=== PATIENT | female | born 1995 | race Caucasian/White ===

== ENCOUNTER → 2017-04-28 | Outpatient (CLI) | payer BC ==
[2017-04-28 16:02] LABS: HEMATOCRIT 42.9 % (35.0-45.0); HEMOGLOBIN 14.3 g/dl (12.0-15.0); MEAN CELL VOLUME 88 fl (80.0-95.0); MEAN CORPUSCULAR HEMOGLOBIN 29 pg (26.0-32.0); MEAN CORPUSCULAR HGB CONC 33 g/dl (33.0-37.0); MEAN PLATELET VOLUME 8.9 fl (7.4-10.4); PLATELET COUNT 441 K/mm3 (130-400); REDCELL DISTRIBUTION WIDTH-CV 12.9 % (11.5-14.5)
[2017-04-28 16:14] LABS: ALBUMIN 5.2 gm/dL (3.5-5.0); BILIRUBIN,TOTAL 0.3 mg/dL (0.0-1.0); CALCIUM 9.7 mg/dL (8.4-10.2); CREATININE, serum 0.78 mg/dL (0.52-1.25); TOTAL PROTEIN 8.1 gm/dL (6.4-8.2)
== END ==
LOC: COL.LAB 15:41
PROVIDERS: Internal Medicine
DX: K51.811 Other ulcerative colitis with rectal bleeding (principal)

== ENCOUNTER 2017-09-22 14:09 | Outpatient (CLI) | payer BC ==
[~2017-09-22] VITALS: Ht 165.1 cm; Wt 66.0 kg
[2017-09-22 15:00] LABS: BASO % 0.4 % (0.0-2.0); EOS # 0.3 (0.0-0.7); EOS % 3.7 % (0-4.0); GRAN # 5.2 (1.4-6.5); GRAN % 66.4 % (42.2-75.2); LYMPH # 1.9 (1.2-3.4); LYMPH % 24.4 % (20.0-51.0); MEAN CELL VOLUME 82 fl (80.0-95.0); MEAN CORPUSCULAR HGB CONC 32 g/dl (33.0-37.0); MEAN PLATELET VOLUME 8.6 fl (7.4-10.4); MONO # 0.3 (0.1-0.6); MONO % 4.2 % (1.7-9.3); PLATELET COUNT 653 K/mm3 (130-400); RED BLOOD COUNT 2.45 M/mm3 (4.10-5.30)
[2017-09-22 15:15] LABS: ALBUMIN 3.3 gm/dL (3.5-5.0); BILIRUBIN,TOTAL 0.2 mg/dL (0.0-1.0); CALCIUM 8.9 mg/dL (8.4-10.2); CREATININE, serum 0.79 mg/dL (0.52-1.25); POTASSIUM 3.8 mmol/L (3.4-5.0); TOTAL PROTEIN 6.5 gm/dL (6.4-8.2)
[2017-09-22 15:17] LABS: HEMATOCRIT 20.1 % (35.0-45.0); HEMOGLOBIN 6.4 g/dl (12.0-15.0); MEAN CORPUSCULAR HEMOGLOBIN 26 pg (26.0-32.0)
[2017-09-22 15:33] VITALS: BP 102/56; PULSE 103; TEMP 99.2
[2017-09-22] MEDS ORDERED: ALDACTONE 25MG25 M1 PO (16:21)
[2017-09-22] MEDS ORDERED: CALCIUM 600MG+D1 TAB PO (16:22)
[2017-09-22] MEDS ORDERED: COLACE 100100 MG/CAP PO (16:22)
[2017-09-22] MEDS ORDERED: TYLENOL 325MG325 MG PO (16:23)
[2017-09-22] MEDS ORDERED: ZOFRAN 4MG T4 MG/TAB PO (16:23)
[2017-09-22] MEDS ORDERED: REMICADE V100 MG/VIA IV (16:24)
[2017-09-22] MEDS ORDERED: MULTIPLE VITAMI1 CAP PO (16:25)
[2017-09-22] MEDS ORDERED: SKYLA13.5 MG IY (16:25)
== END 2017-09-22 16:37 | disposition other institution (70) ==
LOC: EUO 14:09
PROVIDERS: Physician Assistant Medical
DX: I95.9 Hypotension, unspecified (principal); K51.90 Ulcerative colitis, unspecified, without complications; R00.0 Tachycardia, unspecified; R06.02 Shortness of breath; R50.9 Fever, unspecified
CPT/HCPCS: J7030

== ENCOUNTER 2017-09-22 16:28 | Emergency (ER) | payer BC ==
[~2017-09-22] VITALS: Ht 165.1 cm; Wt 66.0 kg
[2017-09-22] VITALS (7 sets, daily range): BP systolic 92–117; BP diastolic 53–77; PULSE 100–106; TEMP 98.2–99
[~2017-09-22 16:28] MED LIST: ALDACTONE 25MG25 M1 PO; CALCIUM 600MG+D1 TAB PO; COLACE 100100 MG/CAP PO; MULTIPLE VITAMI1 CAP PO; REMICADE V100 MG/VIA IV; SKYLA13.5 MG IY; TYLENOL 325MG325 MG PO; ZOFRAN 4MG T4 MG/TAB PO
[2017-09-22 17:20] LABS: COLLECTION METHOD CLEAN CATCH
[2017-09-22 17:22] LABS: BASO % 0.4 % (0.0-2.0); EOS # 0.3 (0.0-0.7); EOS % 4.1 % (0-4.0); GRAN # 4.3 (1.4-6.5); GRAN % 60.2 % (42.2-75.2); LYMPH # 2.1 (1.2-3.4); LYMPH % 29.3 % (20.0-51.0); MEAN CELL VOLUME 81 fl (80.0-95.0); MEAN CORPUSCULAR HGB CONC 32 g/dl (33.0-37.0); MEAN PLATELET VOLUME 8.5 fl (7.4-10.4); MONO # 0.4 (0.1-0.6); MONO % 4.9 % (1.7-9.3); PLATELET COUNT 673 K/mm3 (130-400); RED BLOOD COUNT 2.47 M/mm3 (4.10-5.30)
[2017-09-22 17:27] LABS: HEMOGLOBIN 6.3 g/dl (12.0-15.0); MEAN CORPUSCULAR HEMOGLOBIN 26 pg (26.0-32.0)
[2017-09-22 17:27] LABS: MUCOUS Present /lpf; PH 6 (5-8); SQUAMOUS EPITHELIAL 0-2 /hpf; URINE APPEARANCE Clear; URINE BACTERIA None Seen /hpf; URINE BILIRUBIN Negative (NEGATIVE); URINE BLOOD 1+ (NEGATIVE); URINE COLOR Yellow; URINE GLUCOSE Negative (NEGATIVE); URINE KETONE Negative (NEGATIVE); URINE LEUKOCYTE ESTERASE Negative (NEGATIVE); URINE NITRATE Negative (NEGATIVE); URINE PROTEIN(semi-quant) Negative (NEGATIVE); URINE RBC 0-2 /hpf; URINE UROBILINOGEN Negative (NEGATIVE)
[2017-09-22 17:35] LABS: ALBUMIN 3.2 gm/dL (3.5-5.0); BILIRUBIN,TOTAL 0.1 mg/dL (0.0-1.0); CALCIUM 8.5 mg/dL (8.4-10.2); CREATININE, serum 0.71 mg/dL (0.52-1.25); POTASSIUM 3.8 mmol/L (3.4-5.0); TOTAL PROTEIN 6.5 gm/dL (6.4-8.2)
[2017-09-22 18:56] LABS: PROTHROMBIN TIME 11.6 SECONDS (9.7-12.8)
== END 2017-09-22 22:00 | disposition short-term general hospital (02) ==
LOC: COL.ER 16:28
PROVIDERS: Emergency Medicine
DX: K51.90 Ulcerative colitis, unspecified, without complications (principal); D64.9 Anemia, unspecified; Z90.89 Acquired absence of other organs
CPT/HCPCS: J7030; P9016

== ENCOUNTER → 2017-10-03 | Outpatient (CLI) | payer BC ==
[2017-10-03 08:51] LABS: BASO # 0.1 (0.0-0.2); BASO % 0.7 % (0.0-2.0); EOS # 0.7 (0.0-0.7); EOS % 7.4 % (0-4.0); GRAN # 5.9 (1.4-6.5); GRAN % 67.1 % (42.2-75.2); LYMPH # 1.7 (1.2-3.4); LYMPH % 18.7 % (20.0-51.0); MEAN CELL VOLUME 88 fl (80.0-95.0); MEAN CORPUSCULAR HGB CONC 31 g/dl (33.0-37.0); MEAN PLATELET VOLUME 8.7 fl (7.4-10.4); MONO # 0.5 (0.1-0.6); MONO % 5.6 % (1.7-9.3); PLATELET COUNT 605 K/mm3 (130-400); REDCELL DISTRIBUTION WIDTH-CV 18.4 % (11.5-14.5)
[2017-10-03 08:57] LABS: HEMATOCRIT 31.6 % (35.0-45.0); HEMOGLOBIN 9.9 g/dl (12.0-15.0); MEAN CORPUSCULAR HEMOGLOBIN 28 pg (26.0-32.0)
[2017-10-03 09:03] LABS: ALBUMIN 3.6 gm/dL (3.5-5.0); BILIRUBIN,TOTAL 0.3 mg/dL (0.0-1.0); CALCIUM 9.1 mg/dL (8.4-10.2); CREATININE, serum 0.83 mg/dL (0.52-1.25); POTASSIUM 3.6 mmol/L (3.4-5.0); TOTAL PROTEIN 7.6 gm/dL (6.4-8.2)
== END ==
LOC: COL.LAB 08:13
PROVIDERS: Internal Medicine
DX: D64.9 Anemia, unspecified (principal); K51.311 Ulcerative (chronic) rectosigmoiditis with rectal bleeding

== ENCOUNTER → 2017-10-14 | Outpatient (CLI) | payer BC | LOC: COL.LAB 11:19 | DX: R19.7 Diarrhea, unspecified (principal) ==

== ENCOUNTER → 2017-10-24 | Outpatient (CLI) | payer BC ==
[~2017-10-24] MED LIST changes: +IMURAN 50MG TAB50 MG PO; +PREDNISONE20 MG PO; +PROFE180 MG PO; +TURMERIC500 MG PO
== END ==
LOC: COL.LAB 11:48
DX: D64.9 Anemia, unspecified (principal)

== ENCOUNTER → 2017-10-31 | Outpatient (CLI) | payer BC | LOC: COL.RAD 14:33 | DX: G44.52 New daily persistent headache (NDPH) (principal) | CPT/HCPCS: Q9967 ==

== ENCOUNTER → 2017-11-07 | Outpatient (CLI) | payer BC ==
[2017-11-07 13:46] LABS: HEMATOCRIT 30.5 % (35.0-45.0); HEMOGLOBIN 9.5 g/dl (12.0-15.0)
== END ==
LOC: COL.LAB 13:04
PROVIDERS: Internal Medicine
DX: D64.9 Anemia, unspecified (principal)

== ENCOUNTER → 2017-12-05 | Outpatient (CLI) | payer BC | LOC: COL.LAB 16:05 | DX: D64.9 Anemia, unspecified (principal) ==

== ENCOUNTER → 2017-12-13 | Outpatient (CLI) | payer BC | LOC: COL.LAB 16:52 | DX: D64.9 Anemia, unspecified (principal) ==

== ENCOUNTER → 2018-02-02 | Outpatient (CLI) | payer BC | LOC: COL.LAB 14:17 | DX: K51.311 Ulcerative (chronic) rectosigmoiditis with rectal bleeding (principal); D64.9 Anemia, unspecified ==

== ENCOUNTER → 2018-02-10 | Outpatient (CLI) | payer BC | LOC: COL.LAB 15:09 | DX: R19.7 Diarrhea, unspecified (principal) ==

== ENCOUNTER → 2018-02-17 | Outpatient (CLI) | payer BC ==
[2018-02-17 12:36] LABS: HEMATOCRIT 37.3 % (37.0-47.0); HEMOGLOBIN 12.6 g/dl (12.5-16.0); MEAN CELL VOLUME 89 fl (80.0-100.0); MEAN CORPUSCULAR HEMOGLOBIN 30 pg (27.0-31.0); MEAN CORPUSCULAR HGB CONC 34 g/dl (33.0-37.0); PLATELET COUNT 401 K/mm3 (130-400); REDCELL DISTRIBUTION WIDTH-CV 14.9 % (11.5-14.5)
[2018-02-17 12:47] LABS: CALCIUM 9.6 mg/dL (8.4-10.2); CREATININE, serum 0.62 mg/dL (0.52-1.25); POTASSIUM 4.1 mmol/L (3.4-5.0)
== END ==
LOC: COL.LAB 12:00
PROVIDERS: Physician Assistant Medical
DX: I49.8 Other specified cardiac arrhythmias (principal); I95.9 Hypotension, unspecified; K51.90 Ulcerative colitis, unspecified, without complications

== ENCOUNTER → 2018-05-19 | Outpatient (CLI) | payer BC ==
[2018-05-19 16:19] LABS: BASO % 0.4 % (0.0-2.0); EOS # 0.1 (0.0-0.7); EOS % 1.2 % (0-4.0); GRAN # 5.5 (1.4-6.5); GRAN % 66.8 % (42.2-75.2); HEMATOCRIT 40.6 % (37.0-47.0); HEMOGLOBIN 13.8 g/dl (12.5-16.0); LYMPH # 2.1 (1.2-3.4); LYMPH % 25.2 % (20.0-51.0); MEAN CELL VOLUME 91 fl (80.0-100.0); MEAN CORPUSCULAR HEMOGLOBIN 31 pg (27.0-31.0); MEAN CORPUSCULAR HGB CONC 34 g/dl (33.0-37.0); MEAN PLATELET VOLUME 9.9 fl (7.4-10.4); MONO # 0.5 (0.1-0.6); PLATELET COUNT 343 K/mm3 (130-400); RED BLOOD COUNT 4.47 M/mm3 (4.10-5.30); REDCELL DISTRIBUTION WIDTH-CV 12.3 % (11.5-14.5)
[2018-05-19 16:26] LABS: BILIRUBIN,TOTAL 0.5 mg/dL (0.0-1.0); CALCIUM 10.1 mg/dL (8.4-10.2); CREATININE, serum 0.65 mg/dL (0.52-1.25); TOTAL PROTEIN 8.3 gm/dL (6.4-8.2)
== END ==
LOC: COL.LAB 15:05
PROVIDERS: Internal Medicine
DX: K51.311 Ulcerative (chronic) rectosigmoiditis with rectal bleeding (principal)

== ENCOUNTER → 2018-12-14 | Outpatient (CLI) | payer BC ==
[2018-12-14 17:55] LABS: BASO % 0.2 % (0.0-2.0); EOS # 0.1 (0.0-0.7); EOS % 1.4 % (0-4.0); GRAN # 6.3 (1.4-6.5); GRAN % 69.7 % (42.2-75.2); HEMATOCRIT 38.4 % (37.0-47.0); LYMPH # 2.1 (1.2-3.4); LYMPH % 23.2 % (20.0-51.0); MEAN CELL VOLUME 91 fl (80.0-100.0); MEAN CORPUSCULAR HEMOGLOBIN 31 pg (27.0-31.0); MEAN CORPUSCULAR HGB CONC 34 g/dl (33.0-37.0); MEAN PLATELET VOLUME 10.4 fl (7.4-10.4); MONO # 0.5 (0.1-0.6); MONO % 5.2 % (1.7-9.3); PLATELET COUNT 362 K/mm3 (130-400); RED BLOOD COUNT 4.24 M/mm3 (4.10-5.30); REDCELL DISTRIBUTION WIDTH-CV 12.7 % (11.5-14.5)
[2018-12-15 14:01] LABS: ALBUMIN 5.5 gm/dL (3.5-5.0); BILIRUBIN,TOTAL 1.3 mg/dL (0.0-1.0); CALCIUM 10.2 mg/dL (8.4-10.2); CREATININE, serum 0.58 (0.52-1.25); POTASSIUM 3.7 mmol/L (3.4-5.0)
== END ==
LOC: COL.LAB 16:36
PROVIDERS: Internal Medicine Gastroenterology
DX: Z79.899 Other long term (current) drug therapy (principal)

== ENCOUNTER → 2019-01-25 | Outpatient (CLI) | payer BC ==
[2019-01-25 16:38] LABS: BASO % 0.2 % (0.0-2.0); EOS # 0.2 (0.0-0.7); EOS % 1.8 % (0-4.0); GRAN # 6.4 (1.4-6.5); GRAN % 68.1 % (42.2-75.2); HEMATOCRIT 39.1 % (37.0-47.0); HEMOGLOBIN 13.2 g/dl (12.5-16.0); LYMPH # 2.2 (1.2-3.4); LYMPH % 23.5 % (20.0-51.0); MEAN CELL VOLUME 91 fl (80.0-100.0); MEAN CORPUSCULAR HEMOGLOBIN 31 pg (27.0-31.0); MEAN CORPUSCULAR HGB CONC 34 g/dl (33.0-37.0); MEAN PLATELET VOLUME 9.7 fl (7.4-10.4); MONO # 0.6 (0.1-0.6); MONO % 6.1 % (1.7-9.3); PLATELET COUNT 356 K/mm3 (130-400); REDCELL DISTRIBUTION WIDTH-CV 12.4 % (11.5-14.5)
[2019-01-25 16:55] LABS: ALBUMIN 5.3 gm/dL (3.5-5.0); BILIRUBIN,TOTAL 0.7 mg/dL (0.0-1.0); CALCIUM 9.9 mg/dL (8.4-10.2); CREATININE, serum 0.61 (0.52-1.25); POTASSIUM 4.1 mmol/L (3.4-5.0); TOTAL PROTEIN 8.5 gm/dL (6.4-8.2)
== END ==
LOC: COL.LAB 16:09
PROVIDERS: Internal Medicine Gastroenterology
DX: Z79.899 Other long term (current) drug therapy (principal)

== ENCOUNTER → 2019-01-30 | Outpatient (CLI) | payer BC | LOC: COL.RAD 09:45 | DX: R74.8 Abnormal levels of other serum enzymes (principal) ==